=== PATIENT | female | born 1990 | race Caucasian/White ===

== ENCOUNTER 2019-04-18 07:57 | Inpatient (IN) | payer MEDICAID ==
[2019-04-18] MEDS ORDERED: CARBOPROST 250 MCG INJ IM ×2 (08:30→15:30)
[2019-04-18] MEDS ORDERED: MISOPROSTOL 200 MCG TAB PR ×2 (08:30→15:30)
[2019-04-18] MEDS ORDERED: METHYLERGONOVINE 0.2 MG INJ IM ×2 (08:30→15:30)
[2019-04-18 08:46] LABS: ADD MAN DIFF? NO
[2019-04-18 08:50] LABS: WHITE BLOOD COUNT 6.9 10^3/ul (4.8-10.8)
[2019-04-18 08:50] LABS: BASOPHILS % 0.6 % (0.0-2.0); EOSINOPHILS # 0.1 10^3/ul (0.0-0.5); EOSINOPHILS % 0.7 % (0.0-7.0); HEMATOCRIT 35.7 % (37.0-47.0); HEMOGLOBIN 11.2 g/dl (12.0-16.0); LYMPHOCYTES # 1.5 10^3/ul (0.8-2.9); LYMPHOCYTES % 21.5 % (15.0-51.0); MEAN CORPUSCULAR HEMOGLOBIN 25.2 pg (29.0-33.0); MEAN CORPUSCULAR HGB CONC 31.4 g/dl (32.0-37.0); MEAN CORPUSCULAR VOLUME 80.2 fl (82.0-101.0); MEAN PLATELET VOLUME 12.6 fl (7.4-10.4); MONOCYTE # 0.4 10^3/ul (0.3-0.9); MONOCYTES % 6.3 % (0.0-11.0); NEUTROPHIL # 4.8 10^3/ul (1.6-7.5); PLATELET COUNT 221 10^3/UL (140-415); RED BLOOD COUNT 4.45 10^6/ul (4.20-5.40); RED CELL DISTRIBUTION WIDTH 16.6 % (11.5-14.5)
[2019-04-18] MEDS: LACTATED RINGER'S 1,000 ML IV ×2 (09:00→09:04)
[2019-04-18 09:08] LABS: INR 0.88; PT RATIO 0.9
[2019-04-18 09:09] LABS: PARTIAL THROMBOPLASTIN TIME 28.8 Sec (23.0-35.0)
[2019-04-18 09:41] LABS: HEPATITIS B SURFACE ANTIGEN NEGATIVE (NEGATIVE)
[2019-04-18] MEDS ORDERED: FENTAnyl 50 MCG/ML VIAL (10:03)
[2019-04-18] MEDS ORDERED: morphine SULFATE/PF (10 MG/10 ML) INJ (10:04)
[2019-04-18] MEDS ORDERED: ONDANSETRON 4 MG INJ (10:05)
[2019-04-18] MEDS ORDERED: OXYTOCIN 10 UNIT INJ (10:05)
[2019-04-18] MEDS ORDERED: PHENYLephrine (100 MCG/ML) 10ML SYG (11:04)
[2019-04-18] MEDS: CEFAZOLIN 2 GM/50 ML (PMX) 50 ML IVPB (12:10)
[2019-04-18] MEDS: OXYTOCIN 30 UNITS/LR 500 ML IV ×3 (12:11→17:01)
[2019-04-18] MEDS: DEXTROSE 5%-LR 1,000 ML IV (15:04)
[2019-04-18] MEDS ORDERED: OXYTOCIN 30 UNITS/LR 500 ML IV (15:30)
[2019-04-18] MEDS ORDERED: METHYLERGONOVINE 0.2 MG TAB PO (15:30)
[2019-04-18] MEDS: LANOLIN HPA 1 PKT TOP (17:05)
[2019-04-18] MEDS ORDERED: morphine 4 MG/ML VIAL IV (17:30)
[2019-04-18] MEDS ORDERED: morphine 2 MG INJ IV (17:30)
[2019-04-18] MEDS ORDERED: ONDANSETRON 4 MG INJ IV (17:30)
[2019-04-18] MEDS ORDERED: DIPHENHYDRAMINE 50 MG INJ IV (17:30)
[2019-04-18] MEDS ORDERED: NALOXONE (0.4 MG/ML) INJ IV (17:30)
[2019-04-18] MEDS ORDERED: TRIMETHOBENZAMIDE 100 MG/ML VIAL IM (17:30)
[2019-04-18] MEDS ORDERED: NALBUPHINE HCL (10 MG/1 ML) INJ IV (17:30)
[2019-04-18 18:25] LABS: RAPID PLASMA REAGIN NONREACTIVE (NR)
[2019-04-18] MEDS: SENNA/DOCUSATE NA (8.6MG/50MG) TAB PO (20:43)
[2019-04-19] MEDS: DEXTROSE 5%-LR 1,000 ML IV ×3 (01:57→19:15)
[2019-04-19 05:14] LABS: ADD MAN DIFF? NO
[2019-04-19 05:23] LABS: WHITE BLOOD COUNT 9.5 10^3/ul (4.8-10.8)
[2019-04-19 05:23] LABS: BASOPHILS % 0.3 % (0.0-2.0); EOSINOPHILS % 0.2 % (0.0-7.0); HEMATOCRIT 32.5 % (37.0-47.0); HEMOGLOBIN 10.2 g/dl (12.0-16.0); LYMPHOCYTES # 1.2 10^3/ul (0.8-2.9); LYMPHOCYTES % 12.6 % (15.0-51.0); MEAN CORPUSCULAR HEMOGLOBIN 24.8 pg (29.0-33.0); MEAN CORPUSCULAR HGB CONC 31.4 g/dl (32.0-37.0); MEAN CORPUSCULAR VOLUME 79.1 fl (82.0-101.0); MEAN PLATELET VOLUME 12.1 fl (7.4-10.4); MONOCYTE # 0.6 10^3/ul (0.3-0.9); MONOCYTES % 6.7 % (0.0-11.0); NEUTROPHIL # 7.6 10^3/ul (1.6-7.5); NEUTROPHILS % 79.7 % (39.0-77.0); PLATELET COUNT 206 10^3/UL (140-415); RED BLOOD COUNT 4.11 10^6/ul (4.20-5.40); RED CELL DISTRIBUTION WIDTH 16.5 % (11.5-14.5)
[2019-04-19] MEDS: KETOROLAC 30 MG INJ IV (06:31)
[2019-04-19] MEDS: ASCORBIC ACID 500 MG TAB PO (09:32)
[2019-04-19] MEDS: FERROUS SULFATE (EC) 325 MG TAB PO (09:33)
[2019-04-19] MEDS: SENNA/DOCUSATE NA (8.6MG/50MG) TAB PO ×2 (09:33→21:12)
[2019-04-19] MEDS ORDERED: HYDROCODONE/APAP (5/325) TAB NGT (11:00)
[2019-04-19] MEDS: IBUPROFEN 800 MG TAB PO ×2 (17:24→21:37)
[2019-04-19] MEDS: HYDROCODONE/APAP (5/325) TAB GTB ×2 (17:27→21:37)
[2019-04-19] MEDS: MAGNESIUM HYDROXIDE 30ML CUP PO (21:12)
[2019-04-20 05:07] LABS: ADD MAN DIFF? NO
[2019-04-20 05:16] LABS: BASOPHILS % 0.3 % (0.0-2.0); EOSINOPHILS % 0.5 % (0.0-7.0); HEMATOCRIT 30.3 % (37.0-47.0); HEMOGLOBIN 9.5 g/dl (12.0-16.0); LYMPHOCYTES # 1.4 10^3/ul (0.8-2.9); LYMPHOCYTES % 15.4 % (15.0-51.0); MEAN CORPUSCULAR HEMOGLOBIN 25.3 pg (29.0-33.0); MEAN CORPUSCULAR HGB CONC 31.4 g/dl (32.0-37.0); MEAN CORPUSCULAR VOLUME 80.6 fl (82.0-101.0); MEAN PLATELET VOLUME 12.3 fl (7.4-10.4); MONOCYTE # 0.7 10^3/ul (0.3-0.9); MONOCYTES % 7.4 % (0.0-11.0); NEUTROPHIL # 6.6 10^3/ul (1.6-7.5); NEUTROPHILS % 75.5 % (39.0-77.0); PLATELET COUNT 205 10^3/UL (140-415); RED BLOOD COUNT 3.76 10^6/ul (4.20-5.40); RED CELL DISTRIBUTION WIDTH 16.7 % (11.5-14.5)
[2019-04-20 05:16] LABS: WHITE BLOOD COUNT 8.8 10^3/ul (4.8-10.8)
[2019-04-20] MEDS: IBUPROFEN 800 MG TAB PO ×3 (05:33→21:31)
[2019-04-20] MEDS: HYDROCODONE/APAP (5/325) TAB GTB ×3 (05:34→21:28)
[2019-04-20] MEDS: FERROUS SULFATE (EC) 325 MG TAB PO (09:20)
[2019-04-20] MEDS: ASCORBIC ACID 500 MG TAB PO (09:20)
[2019-04-20] MEDS: SENNA/DOCUSATE NA (8.6MG/50MG) TAB PO ×2 (09:20→21:28)
[2019-04-21] MEDS: IBUPROFEN 800 MG TAB PO ×2 (05:35→14:30)
[2019-04-21] MEDS: HYDROCODONE/APAP (5/325) TAB GTB ×2 (05:35→14:00)
[2019-04-21] MEDS ORDERED: DIPHTH/TET/ACEL PERTUSS (ADULT) 0.5 ML VIAL IM* (09:00)
[2019-04-21] MEDS: ASCORBIC ACID 500 MG TAB PO (09:46)
[2019-04-21] MEDS: SENNA/DOCUSATE NA (8.6MG/50MG) TAB PO (09:46)
[2019-04-21] MEDS: FERROUS SULFATE (EC) 325 MG TAB PO (09:46)
[2019-04-21] MEDS: MEASLES,MUMPS,RUBELLA VACCINE INJ SC* (09:47)
[2019-04-21] MEDS: DIPHTH/TET/ACEL PERTUSS (ADULT) 0.5 ML VIAL IM* (14:31)
== END 2019-04-21 15:57 | disposition home or self-care (01) | DRG 788 ==
LOC: L-D 07:57 → MS1 13:32
PROVIDERS: Obstetrics & Gynecology
PROC: 10D00Z1 Extraction of Products of Conception, Low, Open Approach (ICD-10-PCS; principal; 2019-04-18 09:00)
PROC: 3E033VJ Introduction of Other Hormone into Peripheral Vein, Percutaneous Approach (ICD-10-PCS; 2019-04-18 09:00)
DX: O65.5 Obstructed labor due to abnormality of maternal pelvic organs (principal); O99.214 Obesity complicating childbirth; E66.01 Morbid (severe) obesity due to excess calories; O34.211 Maternal care for low transverse scar from previous cesarean delivery; Z3A.39 39 weeks gestation of pregnancy; Z37.0 Single live birth
CPT/HCPCS: 85025; 85610; 85730; 86592; 86850; 86900; 86901; 87340; 90715; 99464